=== PATIENT | male | born 1990 | race Caucasian/White ===

== ENCOUNTER 2021-05-03 10:46 | Outpatient (REF) | payer MEDICAID, SELFPAY ==
[2021-05-03 13:51] LABS: HCT 44.9 % (40.0-50.0); HGB 15.9 g/dL (13.5-17.5); MCH 38.8 pg (27.0-33.0); MCHC 35.4 % (32.0-36.0); MCV 109.5 fL (80-95); MPV 10.3 fL (8.0-11.0); Nucleated RBC 0 %; Platelet Count 284 10^3/uL (130-400); RDW 13.9 % (11.8-14.1); RDW-SD 57.3 fL; WBC 13.68 10^3/uL (4.4-10.8)
[2021-05-03 14:02] LABS: INR 1.3 (0.9-1.1); Prothrombin Time 13.3 sec (9.3-11.0)
[2021-05-03 14:07] LABS: Hemoglobin A1C 5.8 % (<5.7)
[2021-05-03 14:23] LABS: Absolute Lymphocyte Count 1.78 10^3/uL (1.2-3.4); Absolute Monocyte Count 1.23 10^3/uL (0.1-0.8); Absolute Neutrophil Count 10.67 10^3/uL (1.2-6.7); Atypical Lymphocytes % 3; Diff Comment Manual Differential; Macrocytosis 2+; Stomatocytes 2+
[2021-05-03 14:28] LABS: ALT 93 U/L (16-63); AST 234 U/L (15-37); Albumin 3.2 g/dL (3.4-5.0); Alkaline Phosphatase 481 U/L (46-116); Anion Gap 13.5 mmol/L (3-11); BUN 3 mg/dL (7-18); Bilirubin, Total 2.3 mg/dL (0.2-1.0); CO2 28.5 mmol/L (21.0-32.0); CREATININE 0.5 mg/dL (0.70-1.30); Calcium 8.3 mg/dL (8.5-10.1); Calculated LDL 159 mg/dL (<100); Chloride 99 mmol/L (98-107); Cholesterol 213 mg/dL (<200); Folate 1.5 ng/mL (8.6-20.0); Glucose 118 mg/dL (74-106); HDL Cholesterol 16 mg/dL (40-60); Potassium 3.1 mmol/L (3.5-5.1); Sodium 141 mmol/L (136-145); Total Protein 7.4 g/dL (6.4-8.2); Triglyceride 194 mg/dL (<150); Vitamin B12 905 pg/mL (193-986)
== END 2021-05-03 10:47 | disposition home or self-care (01) ==
LOC: NCHCN 10:46
PROVIDERS: PCP Nurse Practitioner Family; Visit Provider Registered Nurse
DX: Z00.00 Encounter for general adult medical examination without abnormal findings (principal); R74.8 Abnormal levels of other serum enzymes; F10.10 Alcohol abuse, uncomplicated
CPT/HCPCS: 80053; 80061; 82607; 82746; 83036; 85025; 85610

== ENCOUNTER 2021-05-09 21:08 | Outpatient (REF) | payer MEDICAID, SELFPAY ==
[2021-05-09 21:18] LABS: Abs Immature Grans 0.05 10^3/uL (0.0-0.06); Absolute Basophil Count 0.11 10^3/uL (0.0-0.2); Absolute Eosinophil Count 0.13 10^3/uL (0.0-0.7); Absolute Lymphocyte Count 2.19 10^3/uL (1.2-3.4); Basophils % 0.8; HCT 43.1 % (40.0-50.0); HGB 15.2 g/dL (13.5-17.5); Immature Grans % 0.4; Lymphocytes % 16.4; MCH 38.9 pg (27.0-33.0); MCHC 35.3 % (32.0-36.0); MCV 110.2 fL (80-95); MPV 10.9 fL (8.0-11.0); Monocytes % 10.9; Neutrophils % 70.5; Nucleated RBC 0 %; Platelet Count 256 10^3/uL (130-400); RBC 3.91 10^6/uL (4.36-5.78); RDW 14.1 % (11.8-14.1); RDW-SD 58.4 fL; WBC 13.34 10^3/uL (4.4-10.8)
[2021-05-09 21:19] LABS: Absolute Monocyte Count 1.45 10^3/uL (0.1-0.8)
[2021-05-09 21:34] LABS: ALT 85 U/L (16-63); AST 227 U/L (15-37); Alkaline Phosphatase 485 U/L (46-116); Anion Gap 9.9 mmol/L (3-11); BUN 4 mg/dL (7-18); Bilirubin, Total 3.3 mg/dL (0.2-1.0); CO2 30.1 mmol/L (21.0-32.0); CREATININE 0.6 mg/dL (0.70-1.30); Calcium 8.2 mg/dL (8.5-10.1); Chloride 100 mmol/L (98-107); Glucose 140 mg/dL (74-106); Potassium 3.1 mmol/L (3.5-5.1); Sodium 140 mmol/L (136-145); Total Protein 7.3 g/dL (6.4-8.2)
== END 2021-05-09 21:09 | disposition home or self-care (01) ==
LOC: NCHCN 21:08
PROVIDERS: PCP Nurse Practitioner Family; Visit Provider Registered Nurse
DX: E87.6 Hypokalemia (principal); F10.10 Alcohol abuse, uncomplicated; R16.0 Hepatomegaly, not elsewhere classified; R74.8 Abnormal levels of other serum enzymes
CPT/HCPCS: 80053; 85025

== ENCOUNTER 2021-05-16 22:14 | Outpatient (REF) | payer MEDICAID, SELFPAY ==
[2021-05-16 21:56] LABS: Absolute Basophil Count 0.12 10^3/uL (0.0-0.2); Absolute Eosinophil Count 0.12 10^3/uL (0.0-0.7); Absolute Monocyte Count 1.67 10^3/uL (0.1-0.8); Basophils % 0.8; Eosinophils % 0.8; HCT 43.4 % (40.0-50.0); HGB 15.1 g/dL (13.5-17.5); Immature Grans % 0.3; Lymphocytes % 13.8; MCH 37.9 pg (27.0-33.0); MCHC 34.8 % (32.0-36.0); MPV 11.2 fL (8.0-11.0); Monocytes % 11.4; Neutrophils % 72.9; Nucleated RBC 0 %; Platelet Count 278 10^3/uL (130-400); RBC 3.98 10^6/uL (4.36-5.78); RDW 14.7 % (11.8-14.1); RDW-SD 60.3 fL; WBC 14.61 10^3/uL (4.4-10.8)
[2021-05-16 22:02] LABS: Absolute Lymphocyte Count 2.02 10^3/uL (1.2-3.4); Absolute Neutrophil Count 10.65 10^3/uL (1.2-6.7)
[2021-05-16 22:15] LABS: Diff Comment Agrees w/ Instrument; Macrocytosis 1+
[2021-05-16 22:21] LABS: ALT 70 U/L (16-63); AST 180 U/L (15-37); Albumin 2.6 g/dL (3.4-5.0); Alkaline Phosphatase 471 U/L (46-116); Anion Gap 11.5 mmol/L (3-11); BUN 5 mg/dL (7-18); Bilirubin, Total 4.4 mg/dL (0.2-1.0); CO2 28.5 mmol/L (21.0-32.0); CREATININE 0.6 mg/dL (0.70-1.30); Calcium 8.2 mg/dL (8.5-10.1); Chloride 98 mmol/L (98-107); Glucose 123 mg/dL (74-106); Potassium 3.4 mmol/L (3.5-5.1); Sodium 138 mmol/L (136-145); Total Protein 6.9 g/dL (6.4-8.2)
[2021-05-18 10:51] LABS: HBs Antibody, Qual Negative (See Note); HBs Antibody, Quant <3.1 mIU/mL (See Note); Hepatitis B Core Antibody Negative (Negative); Hepatitis B surface Ag Negative (Negative); Hepatitis C Ab w Rflx HCV PCR Negative (Negative)
[2021-05-18 11:37] LABS: Hep A Total Ab w Rflx IgM Positive (Negative)
[2021-05-21 14:19] LABS: Hep A Antibody IgM Negative (Negative)
== END 2021-05-16 22:15 | disposition home or self-care (01) ==
LOC: LBN 22:14
PROVIDERS: PCP Nurse Practitioner Family; Visit Provider Registered Nurse
DX: K92.0 Hematemesis (principal); Z13.818 Encounter for screening for other digestive system disorders; F10.10 Alcohol abuse, uncomplicated
CPT/HCPCS: 80053; 86704; 86706; 86709; 86803; 87340; 85025

== ENCOUNTER 2021-05-18 20:21 | Outpatient (REF) | payer MEDICAID, SELFPAY ==
[2021-05-18 20:40] LABS: Abs Immature Grans 0.06 10^3/uL (0.0-0.06); Absolute Basophil Count 0.12 10^3/uL (0.0-0.2); Basophils % 0.8; Eosinophils % 0.7; HCT 40.3 % (40.0-50.0); HGB 14.6 g/dL (13.5-17.5); Immature Grans % 0.4; Lymphocytes % 16.1; MCH 38.6 pg (27.0-33.0); MCHC 36.2 % (32.0-36.0); MCV 106.6 fL (80-95); Monocytes % 13.4; Neutrophils % 68.6; Nucleated RBC 0 %; Platelet Count 287 10^3/uL (130-400); RBC 3.78 10^6/uL (4.36-5.78); RDW 14.8 % (11.8-14.1); RDW-SD 59.4 fL; WBC 14.87 10^3/uL (4.4-10.8)
[2021-05-18 20:42] LABS: Absolute Lymphocyte Count 2.39 10^3/uL (1.2-3.4); Absolute Monocyte Count 1.99 10^3/uL (0.1-0.8)
[2021-05-18 20:52] LABS: Diff Comment Agrees w/ Instrument; Macrocytosis 1+
[2021-05-18 21:00] LABS: ALT 66 U/L (16-63); AST 177 U/L (15-37); Albumin 2.5 g/dL (3.4-5.0); Alkaline Phosphatase 469 U/L (46-116); Anion Gap 12.3 mmol/L (3-11); BUN 3 mg/dL (7-18); Bilirubin, Total 5.1 mg/dL (0.2-1.0); CO2 25.7 mmol/L (21.0-32.0); CREATININE 0.5 mg/dL (0.70-1.30); Calcium 8.1 mg/dL (8.5-10.1); Chloride 100 mmol/L (98-107); Glucose 114 mg/dL (74-106); Potassium 3.2 mmol/L (3.5-5.1); Sodium 138 mmol/L (136-145); Total Protein 6.8 g/dL (6.4-8.2)
[2021-05-18 21:15] LABS: INR 1.4 (0.9-1.1); Prothrombin Time 13.8 sec (9.3-11.0)
== END 2021-05-18 20:22 | disposition home or self-care (01) ==
LOC: NCHCN 20:21
PROVIDERS: PCP Nurse Practitioner Family; Visit Provider Registered Nurse
DX: R16.0 Hepatomegaly, not elsewhere classified (principal); R74.8 Abnormal levels of other serum enzymes; F10.10 Alcohol abuse, uncomplicated; G60.8 Other hereditary and idiopathic neuropathies
CPT/HCPCS: 80053; 85025; 85610

== ENCOUNTER 2021-05-28 15:15 | Outpatient (REF) | payer MEDICAID, SELFPAY ==
[2021-05-28 16:21] LABS: HGB 14.4 g/dL (13.5-17.5); MCH 37.9 pg (27.0-33.0); MCV 105.3 fL (80-95); MPV 11.5 fL (8.0-11.0); Platelet Count 340 10^3/uL (130-400); RDW 14.5 % (11.8-14.1); RDW-SD 56.5 fL; WBC 16.33 10^3/uL (4.4-10.8)
[2021-05-28 16:30] LABS: INR 1.5 (0.9-1.1); Prothrombin Time 14.8 sec (9.3-11.0)
[2021-05-28 16:52] LABS: ALT 74 U/L (16-63); AST 223 U/L (15-37); Albumin 2.4 g/dL (3.4-5.0); Alkaline Phosphatase 425 U/L (46-116); Anion Gap 11.2 mmol/L (3-11); BUN 2 mg/dL (7-18); Bilirubin, Total 8.1 mg/dL (0.2-1.0); CO2 27.8 mmol/L (21.0-32.0); CREATININE 0.5 mg/dL (0.70-1.30); Calcium 8.1 mg/dL (8.5-10.1); Chloride 97 mmol/L (98-107); Glucose 137 mg/dL (74-106); Sodium 136 mmol/L (136-145); Total Protein 6.8 g/dL (6.4-8.2)
== END 2021-05-28 15:16 | disposition home or self-care (01) ==
LOC: NCHCN 15:15
PROVIDERS: PCP Nurse Practitioner Family; Visit Provider Internal Medicine
DX: I10 Essential (primary) hypertension (principal); F10.10 Alcohol abuse, uncomplicated; K70.10 Alcoholic hepatitis without ascites; R60.0 Localized edema
CPT/HCPCS: 80053; 85027; 85610

== ENCOUNTER 2021-05-31 17:20 | Outpatient (REF) | payer MEDICAID, SELFPAY ==
[2021-05-31 20:57] LABS: HCT 40.4 % (40.0-50.0); HGB 14.6 g/dL (13.5-17.5); MCH 37.5 pg (27.0-33.0); MCHC 36.1 % (32.0-36.0); MCV 103.9 fL (80-95); MPV 11.8 fL (8.0-11.0); Platelet Count 297 10^3/uL (130-400); RBC 3.89 10^6/uL (4.36-5.78); RDW 14.2 % (11.8-14.1); RDW-SD 54.6 fL; WBC 17.01 10^3/uL (4.4-10.8)
[2021-05-31 21:04] LABS: INR 1.6 (0.9-1.1); Prothrombin Time 16.4 sec (9.3-11.0)
[2021-05-31 21:17] LABS: ALT 75 U/L (16-63); AST 213 U/L (15-37); Albumin 2.2 g/dL (3.4-5.0); Alkaline Phosphatase 410 U/L (46-116); Anion Gap 10.9 mmol/L (3-11); BUN 2 mg/dL (7-18); Bilirubin, Total 9.1 mg/dL (0.2-1.0); CO2 28.1 mmol/L (21.0-32.0); CREATININE 0.6 mg/dL (0.70-1.30); Calcium 7.8 mg/dL (8.5-10.1); Chloride 96 mmol/L (98-107); Glucose 160 mg/dL (74-106); Potassium 3.1 mmol/L (3.5-5.1); Sodium 135 mmol/L (136-145); Total Protein 6.7 g/dL (6.4-8.2)
== END 2021-05-31 17:21 | disposition home or self-care (01) ==
LOC: NCHCN 17:20
PROVIDERS: PCP Nurse Practitioner Family; Visit Provider Registered Nurse
DX: I10 Essential (primary) hypertension (principal); K92.0 Hematemesis; R16.0 Hepatomegaly, not elsewhere classified; K70.10 Alcoholic hepatitis without ascites
CPT/HCPCS: 80053; 85027; 85610

== ENCOUNTER 2021-06-06 20:40 | Outpatient (REF) | payer MEDICAID, SELFPAY ==
[2021-06-06 20:50] LABS: HCT 41.8 % (40.0-50.0); HGB 15.1 g/dL (13.5-17.5); MCH 37.1 pg (27.0-33.0); MCHC 36.1 % (32.0-36.0); MCV 102.7 fL (80-95); MPV 12.1 fL (8.0-11.0); Platelet Count 211 10^3/uL (130-400); RBC 4.07 10^6/uL (4.36-5.78); RDW 13.8 % (11.8-14.1); RDW-SD 52.3 fL; WBC 20.41 10^3/uL (4.4-10.8)
[2021-06-06 21:01] LABS: ALT 77 U/L (16-63); AST 251 U/L (15-37); Albumin 2.1 g/dL (3.4-5.0); Alkaline Phosphatase 413 U/L (46-116); Anion Gap 8.2 mmol/L (3-11); BUN 3 mg/dL (7-18); Bilirubin, Total 11.2 mg/dL (0.2-1.0); CO2 31.8 mmol/L (21.0-32.0); CREATININE 0.4 mg/dL (0.70-1.30); Chloride 93 mmol/L (98-107); Glucose 127 mg/dL (74-106); Potassium 4.7 mmol/L (3.5-5.1); Sodium 133 mmol/L (136-145); Total Protein 6.9 g/dL (6.4-8.2)
== END 2021-06-06 20:41 | disposition home or self-care (01) ==
LOC: NCHCN 20:40
PROVIDERS: PCP Nurse Practitioner Family; Visit Provider Internal Medicine
DX: K70.10 Alcoholic hepatitis without ascites (principal); R18.8 Other ascites
CPT/HCPCS: 80053; 85027; 85610

== ENCOUNTER 2021-06-20 18:11 | Outpatient (REF) | payer MEDICAID, SELFPAY ==
[2021-06-20 21:31] LABS: HCT 43.2 % (40.0-50.0); HGB 15.3 g/dL (13.5-17.5); MCH 36.9 pg (27.0-33.0); MCHC 35.4 % (32.0-36.0); MCV 104.1 fL (80-95); MPV 10.9 fL (8.0-11.0); Nucleated RBC 0 %; RBC 4.15 10^6/uL (4.36-5.78); RDW-SD 58.4 fL; WBC 21.06 10^3/uL (4.4-10.8)
[2021-06-20 21:38] LABS: Platelet Count 362 10^3/uL (130-400)
[2021-06-20 21:41] LABS: INR 1.5 (0.9-1.1); Prothrombin Time 15.3 sec (9.3-11.0)
[2021-06-20 21:48] LABS: ALT 69 U/L (16-63); AST 220 U/L (15-37); Albumin 1.9 g/dL (3.4-5.0); Alkaline Phosphatase 266 U/L (46-116); Anion Gap 11.4 mmol/L (3-11); BUN 5 mg/dL (7-18); CO2 22.6 mmol/L (21.0-32.0); CREATININE 0.5 mg/dL (0.70-1.30); Calcium 8.3 mg/dL (8.5-10.1); Chloride 101 mmol/L (98-107); Glucose 93 mg/dL (74-106); Potassium 4.4 mmol/L (3.5-5.1); Sodium 135 mmol/L (136-145); Total Protein 6.6 g/dL (6.4-8.2)
[2021-06-20 22:05] LABS: Absolute Lymphocyte Count 2.53 10^3/uL (1.2-3.4); Absolute Monocyte Count 1.68 10^3/uL (0.1-0.8); Absolute Neutrophil Count 16.85 10^3/uL (1.2-6.7); Atypical Lymphocytes % 1; Bands % 1
[2021-06-20 22:06] LABS: Diff Comment Manual Differential; Macrocytosis 1+
== END 2021-06-20 18:12 | disposition home or self-care (01) ==
LOC: NCHCN 18:11
PROVIDERS: PCP Nurse Practitioner Family; Visit Provider Registered Nurse
DX: K92.0 Hematemesis (principal); R74.8 Abnormal levels of other serum enzymes; K70.10 Alcoholic hepatitis without ascites; R16.0 Hepatomegaly, not elsewhere classified
CPT/HCPCS: 80053; 85025; 85610

== ENCOUNTER 2021-06-28 17:48 | Outpatient (REF) | payer MEDICAID, SELFPAY ==
[2021-06-28 20:26] LABS: HCT 40.8 % (40.0-50.0); HGB 14.4 g/dL (13.5-17.5); MCH 36.9 pg (27.0-33.0); MCHC 35.3 % (32.0-36.0); MCV 104.6 fL (80-95); MPV 11.2 fL (8.0-11.0); Platelet Count 262 10^3/uL (130-400); RDW 14.3 % (11.8-14.1); RDW-SD 55.8 fL; WBC 15.66 10^3/uL (4.4-10.8)
[2021-06-28 20:32] LABS: INR 1.5 (0.9-1.1); Prothrombin Time 15.3 sec (9.3-11.0)
[2021-06-28 20:39] LABS: ALT 67 U/L (16-63); AST 199 U/L (15-37); Albumin 1.9 g/dL (3.4-5.0); Alkaline Phosphatase 254 U/L (46-116); BUN 5 mg/dL (7-18); Bilirubin, Direct 8.6 mg/dL (0.0-0.2); Bilirubin, Total 10.1 mg/dL (0.2-1.0); CREATININE 0.7 mg/dL (0.70-1.30); Calcium 8.1 mg/dL (8.5-10.1); Chloride 104 mmol/L (98-107); Glucose 120 mg/dL (74-106); Potassium 3.9 mmol/L (3.5-5.1); Sodium 136 mmol/L (136-145); Total Protein 6.2 g/dL (6.4-8.2)
== END 2021-06-28 17:49 | disposition home or self-care (01) ==
LOC: NCHCN 17:48
PROVIDERS: PCP Nurse Practitioner Family; Visit Provider Registered Nurse
DX: R74.8 Abnormal levels of other serum enzymes (principal); K70.10 Alcoholic hepatitis without ascites
CPT/HCPCS: 80053; 85027; 82248; 85610

== ENCOUNTER 2021-07-12 10:39 | Outpatient (REF) | payer MEDICAID, SELFPAY ==
[2021-07-12 17:26] LABS: HCT 40.5 % (40.0-50.0); HGB 14.1 g/dL (13.5-17.5); MCH 35.1 pg (27.0-33.0); MCHC 34.8 % (32.0-36.0); MCV 100.7 fL (80-95); MPV 11.5 fL (8.0-11.0); Platelet Count 229 10^3/uL (130-400); RBC 4.02 10^6/uL (4.36-5.78); RDW 12.3 % (11.8-14.1); RDW-SD 46.4 fL; WBC 12.71 10^3/uL (4.4-10.8)
[2021-07-12 17:30] LABS: INR 1.5 (0.9-1.1); Prothrombin Time 14.6 sec (9.3-11.0)
[2021-07-12 17:42] LABS: ALT 51 U/L (16-63); AST 145 U/L (15-37); Albumin 2.4 g/dL (3.4-5.0); Alkaline Phosphatase 277 U/L (46-116); Anion Gap 9.8 mmol/L (3-11); BUN 4 mg/dL (7-18); Bilirubin, Total 5.3 mg/dL (0.2-1.0); CO2 26.2 mmol/L (21.0-32.0); CREATININE 0.6 mg/dL (0.70-1.30); Calcium 8.4 mg/dL (8.5-10.1); Chloride 103 mmol/L (98-107); Glucose 106 mg/dL (74-106); Potassium 3.2 mmol/L (3.5-5.1); Sodium 139 mmol/L (136-145); Total Protein 6.7 g/dL (6.4-8.2)
== END 2021-07-12 10:40 | disposition home or self-care (01) ==
LOC: NCHCN 10:39
PROVIDERS: PCP Nurse Practitioner Family; Visit Provider Registered Nurse
DX: K70.10 Alcoholic hepatitis without ascites (principal)
CPT/HCPCS: 80053; 85027; 85610

== ENCOUNTER 2022-05-13 17:29 | Outpatient (REF) | payer MEDICAID, SELFPAY ==
[2022-05-13 18:21] LABS: HCT 22.2 % (40.0-50.0); HGB 7.4 g/dL (13.5-17.5); MCH 31.6 pg (27.0-33.0); MCHC 33.3 % (32.0-36.0); MCV 95 fL (80-95); MPV 12.2 fL (8.0-11.0); Platelet Count 156 10^3/uL (130-400); RBC 2.34 10^6/uL (4.36-5.78); RDW 15.9 % (11.8-14.1); RDW-SD 54.1 fL; WBC 6.76 10^3/uL (4.4-10.8)
== END 2022-05-13 17:30 | disposition home or self-care (01) ==
LOC: LBN 17:29
PROVIDERS: PCP Nurse Practitioner Family
DX: D62 Acute posthemorrhagic anemia (principal); K70.9 Alcoholic liver disease, unspecified; K92.2 Gastrointestinal hemorrhage, unspecified
CPT/HCPCS: 85027

== ENCOUNTER 2022-05-29 15:16 | Outpatient (REF) | payer MEDICAID, SELFPAY ==
[2022-05-29 21:22] LABS: HCT 23.8 % (40.0-50.0); HGB 7.5 g/dL (13.5-17.5); MCH 28.6 pg (27.0-33.0); MCHC 31.5 % (32.0-36.0); MCV 91 fL (80-95); Platelet Count 299 10^3/uL (130-400); RBC 2.62 10^6/uL (4.36-5.78); RDW 18.7 % (11.8-14.1); WBC 5.13 10^3/uL (4.4-10.8)
[2022-05-29 21:41] LABS: ALT 31 U/L (16-63); AST 70 U/L (15-37); Albumin 2.7 g/dL (3.4-5.0); Alkaline Phosphatase 142 U/L (46-116); Anion Gap 6.6 mmol/L (3-11); BUN 4 mg/dL (7-18); CO2 27.4 mmol/L (21.0-32.0); CREATININE 0.8 mg/dL (0.70-1.30); Calcium 8.8 mg/dL (8.5-10.1); Chloride 107 mmol/L (98-107); Estimated GFR 121.34 (mL/min/1.73m2); Glucose 114 mg/dL (74-106); Potassium 3.6 mmol/L (3.5-5.1); Sodium 141 mmol/L (136-145); Total Protein 7.2 g/dL (6.4-8.2)
== END 2022-05-29 15:17 | disposition home or self-care (01) ==
LOC: NCHCN 15:16
PROVIDERS: PCP Nurse Practitioner Family; Visit Provider Registered Nurse
DX: K92.2 Gastrointestinal hemorrhage, unspecified (principal); K70.31 Alcoholic cirrhosis of liver with ascites
CPT/HCPCS: 80053; 85027